=== PATIENT | male | born 2005 ===

== ENCOUNTER 2024-09-16 12:59 | Outpatient (AMB) | payer MEDICARE, SELFPAY ==
--- NOTE | 2024-09-16 13:10 | MHC.PC.OV ---
Vital Signs 09/16/24 13:11 Height 5 ft 5.75 in Weight 258 lb 8 oz BMI 42.0 BP 130/60 Blood Pressure Location Lt brachial Position Sitting Pulse 90 Pulse Source Pulse Oximeter Temp 97.5 F Temp Source Temporal Artery Scan Pulse Oximetry (%) 97 Oxygen Delivery Method Room Air Intake Visit Reasons: establish care Intake Note: Patient is a new patient here to establish care for ADHD, Asthma, Autism, Exogenous Obesity, Seborrhea, Social Anxiety disorder. Transferring care from [facility]. Medical records have been requested and have received. Requesting for lab order. 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 Accompanied by: Mother Allergies chloral hydrate Allergy (Intermediate, Verified 09/16/24 13:37) Anaphylaxis grass pollen Allergy (Intermediate, Verified 09/16/24 13:37) Hives house dust Allergy (Intermediate, Verified 09/16/24 13:37) Hives peach Allergy (Intermediate, Verified 09/16/24 13:37) Hives Medication List - Last Reconciled 09/16/24 by Nidhi Nayak PA-C albuterol 90 mcg/actuation 180 mcg inhalation DAILY beclomethasone dipropionate 80 mcg/actuation 80 mcg inhalation DAILY cetirizine (All Day Allergy (cetirizine)) 10 mg PO DAILY PRN clonidine HCl mg PO fluoxetine 40 mg PO DAILY fluticasone propionate 50 mcg/actuation (Flonase Allergy Relief) 1 spray intranasal BID hydrocortisone 1% (Anti-Itch (hydrocortisone)) 1 appl topical BID-TID PRN ketoconazole 2% 1 appl topical 2XW methylphenidate HCl ER (Concerta) 36 mg PO QAM selenium sulfide 2.25% 1 appl topical BEDTIME Tobacco use date assessed: 09/16/24 Dental Screening Dental Screen Date: 09/16/24 Did you have a dental visit in the last 12 months?: Yes Did you have a dental problem in the last 6 months where you did not have access to dental care?: No Was dental information given to patient?: Patient has dentist HPI establish care HPI Details 19-year-old male coming to the office for the 1st time. Asthma is Currently well-controlled with albuterol inhaler used as needed during attacks. ADHD is Managed with medications from [facility], no current issues reported. Social anxiety impacts ability to exercise in public; prefers walking in the neighborhood. He is currently following with his counselor and med provider through [employer] and finds this beneficial. Autism Spectrum Disorder has Ongoing services and support in place. [facility] Surgical History No pertinent past surgical history Family History Mother Family history of diabetes mellitus Other Family history of hypertension Mental health disorder Social History Housing: House Alcohol intake: never Patient Tobacco Use Status: Never used Tobacco e-Cigarette/Vaping Use: Never Used Second Hand Smoke Exposure: No service: No Current occupational status: disabled Cognitive needs: No Hearing needs: No Vision needs: Yes (Glasses) Questionnaire PHQ-9 Over the last 2 weeks, how often have you been bothered by any of the following problems? 1. Little interest or pleasure in doing things: not at all 2. Feeling down, depressed, or hopeless: not at all 3. Trouble falling or staying asleep, or sleeping too much: not at all 4. Feeling tired or having little energy: not at all 5. Poor appetite or overeating: not at all 6. Feeling bad about yourself - or that you are a failure or have let yourself or your family down: not at all 7. Trouble concentrating on things, such as reading the newspaper or watching television: several days 8. Moving or speaking so slowly that other people could have noticed. Or the opposite - being so fidgety or restless that you have been moving around a lot more than usual: not at all 9. Thoughts that you would be better off or of hurting yourself in some way: not at all Total score: 1 Depression Screening Interpretation: Negative Depression Screening Done: Yes Source: Developed by Drs. German Beltran, Vanesa Balderrama, Sergei Contreras and colleagues, with an educational kelly from [employer]. Thrive Questionnaire Date Thrive assessed: 09/16/24 I am a: Patient What is your living situation today?: I choose not to answer this question Within the past 12 months, did the food you bought not last and you didn't have the money to get more?: I choose not to answer this question Within the past 12 months, did you worry whether your food would run out before you got money to buy more?: I choose not to answer this question Do you have trouble paying for medicines?: I choose not to answer this question Do you have trouble getting transportation to medical appointments?: I choose not to answer this question Do you have trouble paying your heating and electricity bill?: I choose not to answer this question Do you have trouble taking care of your child, family member or friend?: I choose not to answer this question Do you have trouble with day-to-day activities such as bathing, preparing meals, shopping, managing finances, etc.?: I choose not to answer this question Are you currently unemployed and looking for a job?: I choose not to answer this question Are you interested in more education?: I choose not to answer this question Please select the resources that you would like help with: None Currently or been in a relationship where the following occur: I choose not to answer THRIVE Score: 0 AUDIT C Alcohol Use Questionnaire (AUDIT-C) 1. How often do you have a drink containing alcohol?: Never Total Score: 0 ADRIAN-7 AMB Questionnaire ADRIAN-7 Date ADRIAN - 7 assessed: 09/16/24 Feeling nervous, anxious, or on edge: 0 = Not at all Not being able to stop or control worryin = Not at all Worrying too much about different things: 0 = Not at all Trouble relaxin = Not at all Being so restless that it is hard to sit still: 0 = Not at all Becoming easily annoyed or irritable: 0 = Not at all Feeling afraid as if something awful might happen: 0 = Not at all Total ADRIAN-7 score (0-4 normal; 5-9 mild; 10-14 moderate; 15-21 severe): 0 Source: Developed by Drs. German Beltran, Vanesa Balderrama, Sergei Contreras and colleagues, with an educational kelly from [employer]. ADRIAN-7 Assessment Billing ADRIAN-7 Assessment Tool: ADRIAN-7 Assessment 27238 Review of Systems Const Denies body aches, Denies chills, Denies fever(s), Denies headache(s) and Denies poor appetite Eyes Reports no additional complaints ENT Denies dysphagia, Denies dizziness, Denies headache(s) and Denies odynophagia Card Denies chest pain, Denies syncope, Denies edema, Denies irregular heart rhythm, Denies lightheadedness and Denies dyspnea Resp Denies cough and Denies dyspnea GI Denies abdominal pain, Denies constipation, Denies dysphagia, Denies diarrhea, Denies nausea, Denies odynophagia and Denies vomiting Reports no additional complaints Musc Reports no additional complaints and Denies abnormal gait Skin/Breast Reports system reviewed and no additional complaints, except as documented Neuro Denies abnormal gait, Denies dizziness, Denies syncope and Denies headache(s) Psych Reports no additional complaints Physical exam (Primary Care) Vital Signs: Last Vital Signs Temp 97.5 F 09/16/24 13:11 Oxygen Delivery Method Room Air 09/16/24 13:11 BMI result Body Mass Index 42.0 Tobacco/Smoking Status: Tobacco use Status Tobacco use date assessed 09/16/24 09/16/24 13:16 Patient Tobacco Use Status Never used Tobacco 09/16/24 13:16 e-Cigarette/Vaping Use Never Used 09/16/24 13:16 PHQ-9: PHQ-9 Score PHQ-9: Total score 1 09/16/24 13:16 Depression Screening Interpretation: Negative Thrive Assessment: Date of Thrive Assessment Date Thrive assessed 09/16/24 09/16/24 13:16 Currently or been in a relationship where the following occur: I choose not to answer Const General: cooperative, healthy appearing, comfortable and no acute distress Orientation/consciousness: patient oriented x3 HENMT Head: Yes normocephalic Ears: hearing grossly normal bilaterally General nose exam: Normal external nose present Eyes General: appearance normal, both eyes and all related structures Conjunctivae: conjunctivae normal Neck Neck: Yes full ROM and Yes no lymphadenopathy Resp Effort & Inspection: normal respiratory effort Auscultation: clear to auscultation bilaterally, no crackles, no rales, no rhonchi and no wheezes Cardio Rate: regular rate Rhythm: regular rhythm Skin General skin exam: no rashes or lesions noted Neuro General: patient oriented x3 Gait exam (Neuro): Normal gait present Extrem General: Yes normal to inspection, Yes full ROM and No edema Psych Affect: normal affect Attitude: cooperative Insight: Good insight present (Psych) Judgement: Good judgement present (Psych) Coding Level of Care Code New Pt Level 4 (41239) Diagnoses Mild intermittent asthma with acute exacerbation J45.21 Asthma severity: mild Asthma persistence: intermittent Asthma complication type: with acute exacerbation Anxiety F41.9 Social anxiety disorder F40.10 Morbid obesity with BMI of 40.0-44.9, adult E66.01; Z68.41 ADHD F90.9 Autism F84.0 Seborrhea of face L21.9 Dandruff L21.0 Screening for diabetes mellitus Z13.1 Screening for hypercholesterolemia Z13.220 Additional Codes ADRIAN-7 Assessment Billing - ADRIAN-7 Assessment Tool: ADRIAN-7 Assessment 90309 ([id number]) Assessment & Plan Assessment & Plan (1) Asthma: Code(s): J45.909 - Unspecified asthma, uncomplicated Category: Medical Qualifiers: Asthma severity: mild Asthma persistence: intermittent Asthma complication type: with acute exacerbation Qualified Code(s): J45.21 - Mild intermittent asthma with (acute) exacerbation Plan: Asthma currently controlled on present medications. Continue on QVAR inhaler daily and albuterol as needed. Avoid triggers such as allergies. (2) Anxiety: Comment: [facility] bi weekly Med provider monthly - 2024 Code(s): F41.9 - Anxiety disorder, unspecified Category: Medical Plan: Patient follows with [facility] for management of anxiety disorder. He feels well managed on current medications. (3) Social anxiety disorder: Code(s): F40.10 - Social phobia, unspecified Category: Medical Plan: See above (4) Morbid obesity with BMI of 40.0-44.9, adult: Code(s): E66.01 - Morbid (severe) obesity due to excess calories; Z68.41 - Body mass index [BMI] 40.0-44.9, adult Category: Medical Plan: Healthy diet and regular exercise is encouraged. Reviewed with patient diet and nutrition guidelines and provided resources for portion sizing and meal management. Discussed the importance of physical activity as well. (5) ADHD: Code(s): F90.9 - Attention-deficit hyperactivity disorder, unspecified type Category: Medical Plan: Patient currently following with [facility] for counseling and medical management of his ADHD and is on methylphenidate. He finds this beneficial and feels his symptoms are well managed at this time. (6) Autism: Code(s): F84.0 - Autistic disorder Category: Medical Plan: Patient has a history of autism and does receive services through [facility] for this diagnosis. (7) Seborrhea of face: Code(s): L21.9 - Seborrheic dermatitis, unspecified Category: Medical Plan: Patient using topical creams as advised by last PCP. He typically use a sensitive topical emollients such as CeraVe. (8) Dandruff: Code(s): L21.0 - Seborrhea capitis Category: Medical Plan: Patient currently using medicated shampoo selenium sulfide for symptoms advised good benefit from this. (9) Screening for diabetes mellitus: Code(s): Z13.1 - Encounter for screening for diabetes mellitus Category: Medical Plan: Blood work ordered. (10) Screening for hypercholesterolemia: Code(s): Z13.220 - Encounter for screening for lipoid disorders Category: Medical Plan: Blood work ordered Plan The patient will have fasting blood work to assess diabetes and cholesterol levels due to family history and current weight concerns. Dietary changes are advised to decrease carbohydrate intake, specifically reducing pasta, bread, potatoes, and rice, to aid in weight management and diabetes prevention. Educational materials on healthy eating have been provided in both Welsh and Cymro to facilitate these dietary adjustments. Regular physical activity, such as neighborhood walking, is recommended to enhance health and manage anxiety symptoms. A follow-up appointment is scheduled in three months for a full physical examination and to discuss blood work results. This note was constructed using voice recognition software. While every effort has been made to ensure accuracy and lieutenant fire fighter, still areas may have been included sometimes these areas may affect the content or meeting of the given symptoms. Total time spent caring for the patient today was 30 minutes. This includes time spent before the visit reviewing the chart, time spent during the visit, and time spent after the visit and documentation. Patient was informed and verbally consented to the use of an ambient scribe for clinic note documentation during this visit. Orders: Orders Vitamin B12 and Folate Today E66.01 - Morbid (severe) obesity due to excess calories, Z13.21 - Encounter for screening for nutritional disorder, Z68.41 - Body mass index [BMI] 40.0-44.9, adult TSH reflex Free T4 Today E66.01 - Morbid (severe) obesity due to excess calories, Z00.00 - Encounter for general adult medical examination without abnormal findings, Z68.41 - Body mass index [BMI] 40.0-44.9, adult Lipid Panel Today E66.01 - Morbid (severe) obesity due to excess calories, Z13.220 - Encounter for screening for lipoid disorders, Z68.41 - Body mass index [BMI] 40.0-44.9, adult Vitamin D 25-OH Total Today E66.01 - Morbid (severe) obesity due to excess calories, Z00.00 - Encounter for general adult medical examination without abnormal findings, Z68.41 - Body mass index [BMI] 40.0-44.9, adult Free T4 (Free Thyroxine) Today E66.01 - Morbid (severe) obesity due to excess calories, Z00.00 - Encounter for general adult medical examination without abnormal findings, Z68.41 - Body mass index [BMI] 40.0-44.9, adult Comprehensive Met. Panel Today E66.01 - Morbid (severe) obesity due to excess calories, Z00.00 - Encounter for general adult medical examination without abnormal findings, Z68.41 - Body mass index [BMI] 40.0-44.9, adult Complete Blood Count Auto Diff Today E66.01 - Morbid (severe) obesity due to excess calories, Z00.00 - Encounter for general adult medical examination without abnormal findings, Z68.41 - Body mass index [BMI] 40.0-44.9, adult Hemoglobin A1c Today E66.01 - Morbid (severe) obesity due to excess calories, Z13.1 - Encounter for screening for diabetes mellitus, Z68.41 - Body mass index [BMI] 40.0-44.9, adult
[2024-09-16 13:11] VITALS: BP 130/60; PULSE 90; TEMP 36.4; O2SAT 97; BMI 42.0
== END 2024-09-16 13:55 | disposition home or self-care (01) ==
DX: J45.21 Mild intermittent asthma with (acute) exacerbation (principal); E66.01 Morbid (severe) obesity due to excess calories; Z68.41 Body mass index [BMI] 40.0-44.9, adult; F41.9 Anxiety disorder, unspecified; F40.10 Social phobia, unspecified; F90.9 Attention-deficit hyperactivity disorder, unspecified type; F84.0 Autistic disorder; L21.9 Seborrheic dermatitis, unspecified; L21.0 Seborrhea capitis; Z13.1 Encounter for screening for diabetes mellitus; Z13.220 Encounter for screening for lipoid disorders

== ENCOUNTER → 2024-09-16 12:59 | Outpatient (BNVA) | payer MEDICARE, SELFPAY | DX: J45.21 Mild intermittent asthma with (acute) exacerbation (principal); F41.9 Anxiety disorder, unspecified; F40.10 Social phobia, unspecified; F90.9 Attention-deficit hyperactivity disorder, unspecified type; F84.0 Autistic disorder; E66.01 Morbid (severe) obesity due to excess calories; Z68.41 Body mass index [BMI] 40.0-44.9, adult; L21.0 Seborrhea capitis; L21.9 Seborrheic dermatitis, unspecified; Z71.3 Dietary counseling and surveillance | CPT/HCPCS: 96127; 99202 ==

== ENCOUNTER 2024-11-29 11:26 | Outpatient (REF) | payer MEDICARE, SELFPAY ==
[2024-11-29 11:50] LABS: MANUAL DIFF FLAG NO
[2024-11-29 12:19] LABS: Hematocrit 43.1 % (42.0-52.0); Hemoglobin 15.0 g/dl (14.0-18.0); Imm Gran Abs Auto 0.02 X10*3/uL (0.00-0.03); Imm Gran Pct Auto 0.3 % (0.0-0.4); Lymphocytes Absolute Auto 2.1 X10*3/uL (1.2-4.9); Mean Corpuscular HGB Conc 34.8 g/dl (31.0-36.0); Mean Corpuscular Hemoglobin 29.5 pg (27.0-33.0); Mean Corpuscular Volume 84.7 fL (80.0-98.0); NRBC Abs Auto 0.000 X10*3/uL (0.0-0.012); NRBC Pct Auto 0.0 /100WBC (0.0-0.2); Platelet Count 204 X10*3/uL (160-400); Red Blood Count 5.09 X10*6/uL (4.60-5.80); White Blood Count 6.8 X10*3/uL (4.8-10.8)
[2024-11-29 13:16] LABS: Hemoglobin A1C 141.0600 umol/L; Total Hemoglobin (HGBA1C) 3857.2092 umol/L
[2024-11-29 13:32] LABS: Alanine Aminotransferase 48 U/L (0-40); Albumin Level 4.3 g/dL (3.5-5.0); Alkaline Phosphatase 65 U/L (39-117); Anion Gap 13 (12-20); Aspartate Amino Transferase 31 U/L (5-37); Blood Urea Nitrogen 9 mg/dL (9-16); Calcium 8.8 mg/dL (8.4-10.2); Carbon Dioxide 25 mmol/L (22-29); Chloride 106 mmol/L (96-108); Cholesterol 160 mg/dL (<200); Estimated Glomerular Filt Rate > 60; HDL Cholesterol 52 mg/dL (>40); Potassium 3.7 mmol/L (3.3-5.1); Sodium 140 mmol/L (135-145); Total Protein 7.5 g/dL (6.5-8.0); Triglycerides 128 mg/dL (<150)
[2024-11-29 13:35] LABS: Folate 13.3 ng/mL (> or = 4.0); Vitamin B12 372 pg/mL (200-900)
[2024-11-29 13:40] LABS: Free T4 (Free Thyroxine) 0.99 ng/dL (0.71-1.85)
== END 2024-11-29 11:27 | disposition home or self-care (01) ==
LOC: HO.LAB 11:26
DX: Z00.00 Encounter for general adult medical examination without abnormal findings (principal); Z13.220 Encounter for screening for lipoid disorders; Z13.1 Encounter for screening for diabetes mellitus; Z13.21 Encounter for screening for nutritional disorder; E66.01 Morbid (severe) obesity due to excess calories; Z68.41 Body mass index [BMI] 40.0-44.9, adult; Z13.29 Encounter for screening for other suspected endocrine disorder
CPT/HCPCS: 36415; 80053; 80061; 82306; 82607; 82746; 83036; 84439; 84443; 85025

== ENCOUNTER 2024-12-18 13:54 | Outpatient (AMB) | payer MEDICARE, SELFPAY ==
[2024-12-18 13:57] VITALS: BP 130/70; PULSE 106; BMI 43.1
--- NOTE | 2024-12-18 13:57 | A.OFFPC_ITS ---
Vital Signs 12/18/24 13:57 Height 5 ft 5.75 in Weight 265 lb 4 oz BMI 43.1 BP 130/70 Blood Pressure Location Lt brachial Position Sitting Pulse 106 H Pulse Source Pulse Oximeter Oxygen Delivery Method Room Air Intake Visit Reasons: annual exam Adult Literacy Teacher Required: Yes Adult Literacy Teacher Language: [place] Accompanied by: mom Allergies chloral hydrate Allergy (Intermediate, Verified 12/18/24 14:05) Anaphylaxis grass pollen Allergy (Intermediate, Verified 12/18/24 14:05) Hives house dust Allergy (Intermediate, Verified 12/18/24 14:05) Hives peach Allergy (Intermediate, Verified 12/18/24 14:05) Hives Medication List - Last Reconciled 12/18/24 by Nidhi Nayak PA-C albuterol 90 mcg/actuation 180 mcg inhalation DAILY beclomethasone dipropionate 80 mcg/actuation 80 mcg inhalation DAILY cetirizine (All Day Allergy (cetirizine)) 10 mg PO DAILY PRN cholecalciferol (vitamin D3) 25 mcg PO DAILY clonidine HCl mg PO fluoxetine 40 mg PO DAILY fluticasone propionate 50 mcg/actuation (Flonase Allergy Relief) 1 spray intranasal BID hydrocortisone 1% (Anti-Itch (hydrocortisone)) 1 appl topical BID-TID PRN ketoconazole 2% 1 appl topical 2XW methylphenidate HCl ER (Concerta) 36 mg PO QAM selenium sulfide 2.25% 1 appl topical BEDTIME Tobacco use date assessed: 09/16/24 Dental Screening Dental Screen Date: 09/16/24 Did you have a dental visit in the last 12 months?: No Did you have a dental problem in the last 6 months where you did not have access to dental care?: No Was dental information given to patient?: Patient has dentist HPI annual exam HPI Details 19 year old male with past medical histo ry of ADHD, asthma and anxiety last seen 09/2024 coming in for annual exam. Presenting for a routine physical examination. Vitamin D deficiency was identified in recent lab results, and supplementation has been started. A liver enzyme was slightly elevated, and a follow-up test is planned to monitor the levels. Eczema manifests as a rash on the nose and above the eyelash, worsened by climate changes, and is treated with hydrating cream. vaccines: [facility] [place] Surgical History No pertinent past surgical history Family History Mother Family history of diabetes mellitus Other Family history of hypertension Mental health disorder Social History Housing: House Alcohol intake: never Patient Tobacco Use Status: Never used Tobacco e-Cigarette/Vaping Use: Never Used Second Hand Smoke Exposure: No service: No Current occupational status: disabled Cognitive needs: No Hearing needs: No Vision needs: Yes (Glasses) Questionnaire Thrive Questionnaire Date Thrive assessed: 09/16/24 I am a: Patient What is your living situation today?: I choose not to answer this question Within the past 12 months, did the food you bought not last and you didn't have the money to get more?: I choose not to answer this question Within the past 12 months, did you worry whether your food would run out before you got money to buy more?: I choose not to answer this question Do you have trouble paying for medicines?: I choose not to answer this question Do you have trouble getting transportation to medical appointments?: I choose not to answer this question Do you have trouble paying your heating and electricity bill?: I choose not to answer this question Do you have trouble taking care of your child, family member or friend?: I choose not to answer this question Do you have trouble with day-to-day activities such as bathing, preparing meals, shopping, managing finances, etc.?: I choose not to answer this question Are you currently unemployed and looking for a job?: I choose not to answer this question Are you interested in more education?: I choose not to answer this question Please select the resources that you would like help with: None Currently or been in a relationship where the following occur: I choose not to answer THRIVE Score: 0 ADRIAN-7 AMB Questionnaire ADRIAN-7 Date ADRIAN - 7 assessed: 09/16/24 Source: Developed by Drs. German Beltran, Vanesa Balderrama, Sergei Contreras and colleagues, with an educational kelly from [employer]. Review of Systems Const Denies body aches, Denies fatigue, Denies fever(s), Denies frequent falls, Denies headache(s) and Denies weakness Eyes Reports no additional complaints and Denies change in vision ENT Denies dysphagia, Denies dizziness, Denies facial pain, Denies headache(s), Denies nasal congestion and Denies odynophagia Card Denies chest pain, Denies syncope, Denies irregular heart rhythm, Denies leg edema, Denies lightheadedness and Denies dyspnea Resp Denies cough and Denies dyspnea GI Denies abdominal pain, Denies constipation, Denies dysphagia, Denies dyspepsia, Denies diarrhea, Denies nausea, Denies odynophagia and Denies vomiting Denies dysuria, Denies urinary frequency, Denies urinary hesitancy and Denies urinary urgency Musc Denies back pain and Denies myalgias Skin/Breast Reports system reviewed and no additional complaints, except as documented Neuro Denies dizziness, Denies syncope, Denies frequent falls, Denies headache(s) and Denies weakness Psych Reports no additional complaints Endo Denies fatigue Physical exam (Primary Care) Vital Signs: Last Vital Signs Pulse 106 H 12/18/24 13:57 BP 130/70 12/18/24 13:57 Oxygen Delivery Method Room Air 12/18/24 13:57 BMI result Body Mass Index 43.1 Tobacco/Smoking Status: Tobacco use Status Tobacco use date assessed 09/16/24 12/18/24 14:04 Patient Tobacco Use Status Never used Tobacco 12/18/24 14:04 e-Cigarette/Vaping Use Never Used 12/18/24 14:04 Thrive Assessment: Date of Thrive Assessment Date Thrive assessed 09/16/24 12/18/24 14:04 Currently or been in a relationship where the following occur: I choose not to answer Const General: cooperative, healthy appearing, comfortable and no acute distress Orientation/consciousness: patient oriented x3 HENMT Head: Yes normocephalic Ears: hearing grossly normal bilaterally, external ears normal, TM's normal bilaterally and EAC's normal General nose exam: Normal external nose present Face and sinus: Yes normal facial exam and Yes sinuses nontender Mouth: Normal oral and palatal mucosa present and tongue normal Throat: Yes posterior oropharynx normal Eyes General: appearance normal, both eyes and all related structures Conjunctivae: conjunctivae normal Pupils: Equal, round and reactive pupils present EOM: EOMs intact bilaterally and No Nystagmus present Neck Neck: Yes normal visual inspection, Yes full ROM and Yes no lymphadenopathy Chest Chest palpation & inspection: normal inspection of the chest Resp Effort & Inspection: normal respiratory effort Auscultation: clear to auscultation bilaterally, no crackles, no rales, no rhonchi, no wheezes and breath sounds present Cardio Rate: regular rate Rhythm: regular rhythm Peripheral pulses: radial pulses present and dorsalis pedis present GI Inspection: Yes normal to inspection and No Abdominal wall edema Palpation (GI): Soft to palpation, not firm and nontender Auscultation: normal bowel sounds Rectal Exam - Male: Yes deferred General: Yes no CVA tenderness Back/Spine/Pelvis Back: no CVA tenderness Skin General skin exam: no rashes or lesions noted Neuro General: patient oriented x3 Cranial nerves: Yes Equal, round and reactive pupils present, Yes Midline tongue present, Yes Ability to bilaterally elevate shoulders present and No Nystagmus present Gait exam (Neuro): Normal gait present Extrem General: Yes normal to inspection, Yes full ROM, No no pedal edema and No edema Psych Speech and movement: Normal speech and movement present Affect: normal affect Insight: Good insight present (Psych) Judgement: Good judgement present (Psych) Coding Level of Care Code Est Pt Prev Care [id number]) Diagnoses Annual physical exam Z00.00 Mild intermittent asthma with acute exacerbation J45.21 Asthma complication type: with acute exacerbation Asthma persistence: intermittent Asthma severity: mild Anxiety F41.9 Social anxiety disorder F40.10 Morbid obesity with BMI of 40.0-44.9, adult E66.01; Z68.41 ADHD F90.9 Autism F84.0 Seborrhea of face L21.9 Elevated LFTs R79.89 Assessment & Plan Assessment & Plan (1) Annual physical exam: Code(s): Z00.00 - Encounter for general adult medical examination without abnormal findings Category: Medical Plan: Patient is up-to-date on all recommended routine screenings and vaccinations for his age. Blood work is up-to-date and has been reviewed with the patient today. Plan to follow up yearly or sooner as needed. Healthcare proxy form was given to patient today. (2) Asthma: Code(s): J45.909 - Unspecified asthma, uncomplicated Category: Medical Qualifiers: Asthma complication type: with acute exacerbation Asthma persistence: intermittent Asthma severity: mild Qualified Code(s): J45.21 - Mild intermittent asthma with (acute) exacerbation Plan: Asthma currently controlled on present medications. Continue on QVAR inhaler daily and albuterol as needed. Avoid triggers such as allergies. (3) Anxiety: Comment: [facility] counseling bi weekly Med provider monthly - 2024 Code(s): F41.9 - Anxiety disorder, unspecified Category: Medical Plan: Patient follows with [facility] for management of anxiety disorder. He feels well managed on current medications. (4) Social anxiety disorder: Code(s): F40.10 - Social phobia, unspecified Category: Medical Plan: See above (5) Morbid obesity with BMI of 40.0-44.9, adult: Code(s): E66.01 - Morbid (severe) obesity due to excess calories; Z68.41 - Body mass index [BMI] 40.0-44.9, adult Category: Medical Plan: Healthy diet and regular exercise is encouraged. Reviewed with patient diet and nutrition guidelines and provided resources for portion sizing and meal management. Discussed the importance of physical activity as well. (6) ADHD: Code(s): F90.9 - Attention-deficit hyperactivity disorder, unspecified type Category: Medical Plan: Patient currently following with [facility] for counseling and medical management of his ADHD and is on methylphenidate. He finds this beneficial and feels his symptoms are well managed at this time. (7) Autism: Code(s): F84.0 - Autistic disorder Category: Medical Plan: Patient has a history of autism and does receive services through [facility] for this diagnosis. (8) Seborrhea of face: Code(s): L21.9 - Seborrheic dermatitis, unspecified Category: Medical Plan: Continue to use hydrating creams. Consider referral to derm. (9) Elevated LFTs: Code(s): R79.89 - Other specified abnormal findings of blood chemistry Category: Medical Plan: Plan for repeat blood work and consider abdominal ultrasound. Plan This note was constructed using voice recognition software. While every effort has been made to ensure accuracy and equity structurer, still areas may have been included sometimes these areas may affect the content or meeting of the given symptoms. Total time spent caring for the patient today was 30 minutes. This includes time spent before the visit reviewing the chart, time spent during the visit, and time spent after the visit and documentation. Patient was informed and verbally consented to the use of an ambient scribe for clinic note documentation during this visit. Orders: Orders Liver Panel Today R79.89 - Other specified abnormal findings of blood chemistry Hepatitis B,C Profile Today R79.89 - Other specified abnormal findings of blood chemistry Medications: New ammonium lactate 12% (AmLactin) 1 appl topical DAILY 225 grams 1RF Changed From cetirizine (All Day Allergy (cetirizine)) 10 mg PO DAILY PRN To cetirizine (All Day Allergy (cetirizine)) 10 mg PO DAILY 90 tabs 2RF
== END 2024-12-18 15:03 | disposition home or self-care (01) ==
LOC: HO.HMCH 13:55
DX: Z00.00 Encounter for general adult medical examination without abnormal findings (principal); J45.21 Mild intermittent asthma with (acute) exacerbation; E66.01 Morbid (severe) obesity due to excess calories; Z68.41 Body mass index [BMI] 40.0-44.9, adult; F41.9 Anxiety disorder, unspecified; F40.10 Social phobia, unspecified; F90.9 Attention-deficit hyperactivity disorder, unspecified type; F84.0 Autistic disorder; L21.9 Seborrheic dermatitis, unspecified; R79.89 Other specified abnormal findings of blood chemistry

== ENCOUNTER → 2024-12-18 13:54 | Outpatient (BNVA) | payer MEDICARE, SELFPAY | DX: Z00.00 Encounter for general adult medical examination without abnormal findings (principal); E55.9 Vitamin D deficiency, unspecified; F90.9 Attention-deficit hyperactivity disorder, unspecified type; F41.9 Anxiety disorder, unspecified; J45.21 Mild intermittent asthma with (acute) exacerbation; F40.10 Social phobia, unspecified; E66.01 Morbid (severe) obesity due to excess calories; F84.0 Autistic disorder; L21.9 Seborrheic dermatitis, unspecified; R79.89 Other specified abnormal findings of blood chemistry; Z68.41 Body mass index [BMI] 40.0-44.9, adult | CPT/HCPCS: 99395 ==